=== PATIENT | male | born 2000 | race Caucasian/White ===

== ENCOUNTER 2021-05-31 07:36 | Emergency (ER) | payer OTHER, SELFPAY ==
[~2021-05-31] VITALS: Ht 172.7 cm; Wt 68.0 kg
[2021-05-31 07:45] VITALS: BP_SYST 118
[2021-05-31] MEDS ORDERED: ONDANSETRON HCL 4 MG/2 ML VIAL IVP ONE (08:00)
[2021-05-31] MEDS ORDERED: NACL 0.9% 1,000 ML IV ONE (08:00)
[2021-05-31] MEDS ORDERED: KETOROLAC TROMETHAMINE 30 MG VIAL IVP ONE (08:00)
[2021-05-31] MEDS ORDERED: LOPERAMIDE HCL 2 MG CAPSULE PO ONE (08:00)
[2021-05-31 08:25] LABS: BASOPHILS % (AUTO) 0.6 % (0.0-2.0); HEMATOCRIT 44.1 % (36-54); LYMPHOCYTES % (AUTO) 11.4 % (20.5-51.5); MEAN CORPUSCULAR HEMOGLOBIN 30 pg (27-31); MEAN CORPUSCULAR HGB CONC 34 % (32-36); MEAN CORPUSCULAR VOLUME 87 fL (79.0-98.0); MONOCYTES # (AUTO) 3.8 K/uL (0.0-1.0); MONOCYTES % (AUTO) 43.5 % (1.7-9.3); NEUTROPHILS # (AUTO) 3.9 K/uL (1.8-7.7); NEUTROPHILS % (AUTO) 44.5 % (40.0-70.0); PLATELET COUNT (AUTO) 314 K/uL (130-430); RED BLOOD CELL COUNT(AUTO) 5.09 MIL/uL (4.2-6.2); RED CELL DISTRIBUTION WIDTH 13.2 % (9.0-15.0); WHITE BLOOD COUNT (AUTO) 8.6 K/uL (4.8-10.8)
[2021-05-31 08:39] LABS: CREATININE 1.07 mg/dL (0.55-1.30); POTASSIUM 3.8 mmol/L (3.5-5.1)
[2021-05-31 08:46] LABS: ALBUMIN 3.2 g/dL (3.4-4.8)
[2021-05-31] MEDS ORDERED: ONDA4TAB5 PO (09:17)
[2021-05-31] MEDS ORDERED: ACET-2634 PO (09:17)
[2021-05-31] MEDS ORDERED: LOPE2CAP PO (09:17)
[2021-05-31 09:47] LABS: BILIRUBIN,URINE NEGATIVE (NEGATIVE); BLOOD, URINE NEGATIVE (NEGATIVE); COLOR,URINE YELLOW (YELLOW); GLUCOSE,URINE NEGATIVE (NEGATIVE); KETONES,URINE NEGATIVE (NEGATIVE); LEUKOCYTE ESTERASE ,URINE NEGATIVE (NEGATIVE); NITRITE, URINE NEGATIVE (NEGATIVE); PROTEIN URINE TRACE (NEGATIVE)
[2021-05-31 09:55] LABS: CLARITY/URINE CLEAR (CLEAR)
[2021-05-31 11:15] VITALS: BP_SYST 118
== END 2021-05-31 11:15 | disposition home or self-care (01) ==
LOC: SED 07:36
DX: R11.2 Nausea with vomiting, unspecified (principal); R19.7 Diarrhea, unspecified; R50.9 Fever, unspecified; B34.9 Viral infection, unspecified; Z79.899 Other long term (current) drug therapy; Z20.822 Contact with and (suspected) exposure to COVID-19
CPT/HCPCS: 36415; 71045; 80053; 81003; 83605; 83690; 84484; 85025; 86710; 87040; 87426; 96361; 96374; 96375; 99284; J1885; J2405; J7030

== ENCOUNTER 2021-07-24 10:57 | Inpatient (IN) | payer OTHER, SELFPAY ==
[2021-07-24] VITALS (9 sets, daily range): BP systolic 68–115
[~2021-07-24] VITALS: Ht 172.7 cm; Wt 49.9 kg
[~2021-07-24 10:57] MED LIST: ACET-2634 PO; LOPE2CAP PO; ONDA4TAB5 PO
[2021-07-24] MEDS ORDERED: PRED20TA PO (11:03)
[2021-07-24] MEDS ORDERED: PIPERACILLIN/TAZO 3.38 GM in D5W 50 ML IV ONE (11:15)
[2021-07-24] MEDS ORDERED: NS 1000 ML IV.SOLN IV ONE (11:15)
[2021-07-24] MEDS ORDERED: PIPERACILLIN/TAZOBACTAM 3.375 GM/VIAL (ZOSYN) IV ONE (11:24)
[2021-07-24 11:41] LABS: BASOPHILS % (AUTO) 0.2 % (0.0-2.0); EOSINOPHILS % (AUTO) 0.1 % (0.0-4.0); HEMATOCRIT 36.2 % (36-54); HEMOGLOBIN 11.8 g/dL (14.0-18.0); LYMPHOCYTES # (AUTO) 1.3 K/uL (1.0-5.5); MEAN CORPUSCULAR HEMOGLOBIN 28 pg (27-31); MEAN CORPUSCULAR HGB CONC 33 % (32-36); MEAN CORPUSCULAR VOLUME 86 fL (79.0-98.0); MONOCYTES # (AUTO) 0.9 K/uL (0.0-1.0); MONOCYTES % (AUTO) 15.1 % (1.7-9.3); NEUTROPHILS # (AUTO) 3.5 K/uL (1.8-7.7); NEUTROPHILS % (AUTO) 61.6 % (40.0-70.0); PLATELET COUNT (AUTO) 513 K/uL (130-430); RED BLOOD CELL COUNT(AUTO) 4.22 MIL/uL (4.2-6.2); RED CELL DISTRIBUTION WIDTH 16.7 % (9.0-15.0); WHITE BLOOD COUNT (AUTO) 5.7 K/uL (4.8-10.8)
[2021-07-24] MEDS ORDERED: HYDROCORTISONE SOD SUCC 100 MG/2 ML VIAL IVP ONE ×2 (11:45→16:00)
[2021-07-24 12:05] LABS: CALCIUM 8.5 mg/dL (8.4-11.0); CREATININE 0.75 mg/dL (0.55-1.30); POTASSIUM 3.4 mmol/L (3.5-5.1)
[2021-07-24 12:09] LABS: INR 1.2 (0.80-1.20); PROTHROMBIN TIME 12.5 SECS (9.5-12.5)
[2021-07-24 12:11] LABS: ALBUMIN 2.4 g/dL (3.4-4.8); TOTAL BILIRUBIN 0.8 mg/dL (0.0-1.0)
[2021-07-24 12:54] LABS: ERYTHROCYTE SEDIMENTATION RATE 44 MM/HR (0-15)
[2021-07-24] MEDS ORDERED: METH2.5T PO (14:11)
[2021-07-24] MEDS ORDERED: NACL 0.9% 1,000 ML IV ONE ×3 (14:15→17:45)
[2021-07-24] MEDS ORDERED: NOREPINEPHRINE 4 MG/4 ML VIAL IV ONE (15:53)
[2021-07-24 16:15] LABS: BILIRUBIN,URINE NEGATIVE (NEGATIVE); BLOOD, URINE NEGATIVE (NEGATIVE); CLARITY/URINE CLEAR (CLEAR); COLOR,URINE YELLOW (YELLOW); GLUCOSE,URINE NEGATIVE (NEGATIVE); KETONES,URINE NEGATIVE (NEGATIVE); LEUKOCYTE ESTERASE ,URINE NEGATIVE (NEGATIVE); NITRITE, URINE NEGATIVE (NEGATIVE); PH,URINE 7.5 (5.0-8.0); PROTEIN URINE NEGATIVE (NEGATIVE); UROBILINOGEN,URINE 0.2 (0.2-1.0)
[2021-07-24] MEDS ORDERED: ALBUMIN HUMAN 25% 200 ML IV ONE ×2 (16:23→16:30)
[2021-07-24] MEDS ORDERED: ONDANSETRON 4 MG ODT TAB TL PRN (17:30)
[2021-07-24] MEDS ORDERED: POTASSIUM CHLORIDE 20 MEQ/PKT PACKET PO ONE (17:30)
[2021-07-24] MEDS ORDERED: ACETAMINOPHEN 500 MG TABLET PO PRN (17:30)
[2021-07-24] MEDS ORDERED: LOPERAMIDE HCL 2 MG CAPSULE PO PRN (17:30)
[2021-07-24] MEDS: NOREPINEPHRINE BITARTRATE 4 MG in NS 246 ML IV PRN (18:11)
[2021-07-24] MEDS: METHYLPREDNISOLONE SOD SUCC 40 MG/ML VIAL IVP SCH ×2 (18:12→23:56)
[2021-07-24] MEDS: D5LR 1,000 ML IV SCH ×2 (18:14→23:57)
[2021-07-24] MEDS: LACTOBACILLUS RHAMNOSUS GG 1 CAP CAPSULE PO SCH (20:48)
[2021-07-24] MEDS: FAMOTIDINE PF 20 MG/2 ML VIAL IVP SCH (20:48)
[2021-07-24] MEDS: CHOLECALCIFEROL (VITAMIN D3) 2,000 UNIT TABLET PO SCH (20:49)
[2021-07-24] MEDS: metroNIDAZOLE 500 mg/NS 100 ML IV SCH (22:15)
[2021-07-25] VITALS (23 sets, daily range): BP systolic 101–125
[2021-07-25] MEDS: metroNIDAZOLE 500 mg/NS 100 ML IV SCH ×3 (05:48→20:58)
[2021-07-25] MEDS: METHYLPREDNISOLONE SOD SUCC 40 MG/ML VIAL IVP SCH ×4 (05:54→23:57)
[2021-07-25] MEDS: NOREPINEPHRINE BITARTRATE 4 MG in NS 246 ML IV PRN (07:11)
[2021-07-25] MEDS: LACTOBACILLUS RHAMNOSUS GG 1 CAP CAPSULE PO SCH ×4 (08:17→20:57)
[2021-07-25] MEDS: CHOLECALCIFEROL (VITAMIN D3) 2,000 UNIT TABLET PO SCH ×2 (08:17→20:57)
[2021-07-25] MEDS: FAMOTIDINE PF 20 MG/2 ML VIAL IVP SCH ×2 (08:17→21:00)
[2021-07-25] MEDS: POTASSIUM CHLORIDE 20 MEQ/PKT PACKET PO SCH (08:17)
[2021-07-25] MEDS: D5LR 1,000 ML IV SCH ×3 (08:19→20:10)
[2021-07-25] MEDS ORDERED: LOPERAMIDE HCL 1 MG/7.5 ML LIQUID UDC PO ONE (15:15)
[2021-07-25] MEDS ORDERED: LOPERAMIDE HCL 2 MG CAPSULE PO ONE (15:15)
[2021-07-25] MEDS ORDERED: LOPERAMIDE HCL 1 MG/7.5 ML LIQUID UDC PO PRN (15:15)
[2021-07-25] MEDS ORDERED: LIPASE/PROTEASE/AMYLASE 1 CAP PO ONE (15:15)
[2021-07-25] MEDS: LIPASE/PROTEASE/AMYLASE 1 CAP PO SCH (17:24)
[2021-07-26] VITALS (19 sets, daily range): BP systolic 94–122
[2021-07-26] MEDS: LOPERAMIDE HCL 2 MG CAPSULE PO PRN (00:09)
[2021-07-26] MEDS: D5LR 1,000 ML IV SCH ×2 (02:22→09:13)
[2021-07-26] MEDS: metroNIDAZOLE 500 mg/NS 100 ML IV SCH ×3 (05:18→22:38)
[2021-07-26] MEDS: METHYLPREDNISOLONE SOD SUCC 40 MG/ML VIAL IVP SCH ×2 (05:19→17:53)
[2021-07-26] MEDS: NOREPINEPHRINE BITARTRATE 4 MG in NS 246 ML IV PRN (05:25)
[2021-07-26 06:48] LABS: BASOPHILS % (AUTO) 0.1 % (0.0-2.0); HEMATOCRIT 30.8 % (36-54); HEMOGLOBIN 10.1 g/dL (14.0-18.0); LYMPHOCYTES # (AUTO) 0.5 K/uL (1.0-5.5); MEAN CORPUSCULAR HEMOGLOBIN 28 pg (27-31); MEAN CORPUSCULAR HGB CONC 33 % (32-36); MEAN CORPUSCULAR VOLUME 85 fL (79.0-98.0); MONOCYTES # (AUTO) 0.6 K/uL (0.0-1.0); MONOCYTES % (AUTO) 8.3 % (1.7-9.3); NEUTROPHILS # (AUTO) 6.2 K/uL (1.8-7.7); NEUTROPHILS % (AUTO) 84.6 % (40.0-70.0); PLATELET COUNT (AUTO) 561 K/uL (130-430); RED BLOOD CELL COUNT(AUTO) 3.63 MIL/uL (4.2-6.2); RED CELL DISTRIBUTION WIDTH 16.9 % (9.0-15.0)
[2021-07-26 07:53] LABS: WHITE BLOOD COUNT (AUTO) 7.3 K/uL (4.8-10.8)
[2021-07-26 07:54] LABS: ALBUMIN 2.5 g/dL (3.4-4.8); CALCIUM 8.9 mg/dL (8.4-11.0); CREATININE 0.37 mg/dL (0.55-1.30); POTASSIUM 3.6 mmol/L (3.5-5.1); TOTAL BILIRUBIN 0.1 mg/dL (0.0-1.0)
[2021-07-26] MEDS: CHOLECALCIFEROL (VITAMIN D3) 2,000 UNIT TABLET PO SCH ×2 (09:13→21:40)
[2021-07-26] MEDS: LACTOBACILLUS RHAMNOSUS GG 1 CAP CAPSULE PO SCH ×4 (09:13→21:40)
[2021-07-26] MEDS: POTASSIUM CHLORIDE 20 MEQ/PKT PACKET PO SCH (09:13)
[2021-07-26] MEDS: FAMOTIDINE PF 20 MG/2 ML VIAL IVP SCH ×2 (09:13→21:39)
[2021-07-26] MEDS: LIPASE/PROTEASE/AMYLASE 1 CAP PO SCH ×3 (09:47→17:52)
[2021-07-27 00:26] VITALS: BP_SYST 90
[2021-07-27] MEDS: metroNIDAZOLE 500 mg/NS 100 ML IV SCH ×3 (05:39→21:52)
[2021-07-27] MEDS: METHYLPREDNISOLONE SOD SUCC 40 MG/ML VIAL IVP SCH ×2 (05:39→18:13)
[2021-07-27 07:38] LABS: BASOPHILS % (AUTO) 0.2 % (0.0-2.0); HEMATOCRIT 30.3 % (36-54); HEMOGLOBIN 9.9 g/dL (14.0-18.0); LYMPHOCYTES # (AUTO) 0.8 K/uL (1.0-5.5); MEAN CORPUSCULAR HEMOGLOBIN 28 pg (27-31); MEAN CORPUSCULAR HGB CONC 33 % (32-36); MEAN CORPUSCULAR VOLUME 85 fL (79.0-98.0); MONOCYTES # (AUTO) 0.7 K/uL (0.0-1.0); MONOCYTES % (AUTO) 13.8 % (1.7-9.3); NEUTROPHILS # (AUTO) 3.6 K/uL (1.8-7.7); PLATELET COUNT (AUTO) 421 K/uL (130-430); RED BLOOD CELL COUNT(AUTO) 3.56 MIL/uL (4.2-6.2); RED CELL DISTRIBUTION WIDTH 16.6 % (9.0-15.0)
[2021-07-27 07:40] LABS: ALBUMIN 2.5 g/dL (3.4-4.8); CALCIUM 8.8 mg/dL (8.4-11.0); CREATININE 0.4 mg/dL (0.55-1.30); TOTAL BILIRUBIN 0.1 mg/dL (0.0-1.0)
[2021-07-27 08:57] LABS: WHITE BLOOD COUNT (AUTO) 5.2 K/uL (4.8-10.8)
[2021-07-27 10:17] VITALS: BP_SYST 100
[2021-07-27] MEDS: LIPASE/PROTEASE/AMYLASE 1 CAP PO SCH ×3 (10:46→18:13)
[2021-07-27] MEDS: FAMOTIDINE PF 20 MG/2 ML VIAL IVP SCH (10:46)
[2021-07-27] MEDS: LACTOBACILLUS RHAMNOSUS GG 1 CAP CAPSULE PO SCH ×4 (10:47→22:07)
[2021-07-27] MEDS: POTASSIUM CHLORIDE 20 MEQ/PKT PACKET PO SCH (10:48)
[2021-07-27] MEDS: CHOLECALCIFEROL (VITAMIN D3) 2,000 UNIT TABLET PO SCH ×2 (10:49→22:07)
[2021-07-27] MEDS: LOPERAMIDE HCL 2 MG CAPSULE PO PRN ×2 (10:51→17:39)
[2021-07-27 12:44] VITALS: BP_SYST 104
[2021-07-27] MEDS ORDERED: VANCOMYCIN HCL ORAL SOLUTION 125 MG/5 ML, 150 ML PO SCH (17:00)
[2021-07-27 17:26] VITALS: BP_SYST 98
[2021-07-27 20:00] VITALS: BP_SYST 98
[2021-07-27] MEDS: VANCOMYCIN HCL ORAL SOLUTION 250 MG/5 ML, 80 ML GT SCH (21:52)
[2021-07-28] VITALS: BP_SYST 102
[2021-07-28] MEDS: METHYLPREDNISOLONE SOD SUCC 40 MG/ML VIAL IVP SCH (05:36)
[2021-07-28 08:00] VITALS: BP_SYST 96
[2021-07-28] MEDS: CHOLECALCIFEROL (VITAMIN D3) 2,000 UNIT TABLET PO SCH (08:46)
[2021-07-28] MEDS: VANCOMYCIN HCL ORAL SOLUTION 250 MG/5 ML, 80 ML GT SCH ×3 (08:47→17:00)
[2021-07-28] MEDS: LACTOBACILLUS RHAMNOSUS GG 1 CAP CAPSULE PO SCH ×3 (08:47→17:15)
[2021-07-28] MEDS: LIPASE/PROTEASE/AMYLASE 1 CAP PO SCH ×3 (08:47→17:15)
[2021-07-28 12:56] VITALS: BP_SYST 107
[2021-07-28] MEDS ORDERED: predniSONE 20 MG TABLET PO ONE (13:30)
[2021-07-28 16:46] VITALS: BP_SYST 112
[2021-07-28 20:30] VITALS: BP_SYST 93
[2021-07-28 20:58] VITALS: BP_SYST 93
[2021-07-28] MEDS ORDERED: predniSONE 20 MG TABLET PO SCH (21:00)
== END 2021-07-28 21:00 | disposition short-term general hospital (02) | DRG 871 ==
LOC: SED 10:57 → SIC 15:55 → STU 07-26 19:15 → SMU 07-27 14:10 → STU 07-28 11:52 → SMU 07-28 11:53
PROVIDERS: ADMIT Internal Medicine; ATTEND Internal Medicine
DX: A41.9 Sepsis, unspecified organism (principal); R65.21 Severe sepsis with septic shock; E43 Unspecified severe protein-calorie malnutrition; R57.1 Hypovolemic shock; K50.90 Crohn's disease, unspecified, without complications; A04.72 Enterocolitis due to Clostridium difficile, not specified as recurrent; Z68.1 Body mass index [BMI] 19.9 or less, adult; D63.8 Anemia in other chronic diseases classified elsewhere; E87.6 Hypokalemia; Z20.822 Contact with and (suspected) exposure to COVID-19; Z79.899 Other long term (current) drug therapy; Z88.6 Allergy status to analgesic agent
CPT/HCPCS: 36415; 71045; 76376; 80053; 81003; 82272; 82533; 83605; 83735; 85025; 85610-TC; 85651-TC; 85730-TC; 86140; 86886; 86900; 86901; 87040; 87045-TC; 87046; 87086; 87177; 87230-TC; 89055; 96361; 96365; 96375; 99285; G0378; J1030; J1720; J1956; J2543; J3370; J3490; J7050; J7512; Q0162; Q9967